=== PATIENT | female | born 1970 | race Caucasian/White ===

== ENCOUNTER 2017-02-16 07:20 | Emergency (ER) | payer OTHER ==
--- NOTE | 2017-02-16 07:39 | ER Document Report ---
HPI - HPI Patient complains to provider of: back pain Onset: Other - 4 weeks Onset/Duration: Gradual, Persistent Quality of pain: Throbbing Pain Level: 5 Context: 46 yo female with episodic low back pain, worse the past 4 weeks. Steroids prescribed by PCP did not help. No saddle anesthesia or radiculopathy. No IV drugs, No fever. Associated Symptoms: None Exacerbated by: Movement Relieved by: Denies Similar symptoms previously: Yes Recently seen / treated by doctor: No - ROS ROS below otherwise negative: Yes Systems Reviewed and Negative: Yes All other systems reviewed and negative - REPRODUCTIVE Reproductive: DENIES: : - DERM Skin Color: Normal Past Medical History - General Information source: Patient - Social History Smoking Status: Unknown if Ever Smoked Frequency of alcohol use: None Drug Abuse: None Lives with: Family Family History: Reviewed & Not Pertinent Patient has suicidal ideation: No Patient has homicidal ideation: No Pulmonary Medical History: Reports: Hx Asthma, Hx Pneumonia Renal/ Medical History: Denies: Hx Peritoneal Dialysis Surgical Hx: Negative - Immunizations Hx Diphtheria, Pertussis, Tetanus Vaccination: Yes Vertical Provider Document - CONSTITUTIONAL Agree With Documented VS: Yes Exam Limitations: No Limitations - INFECTION CONTROL TRAVEL OUTSIDE OF THE [place] IN LAST 30 DAYS: No - HEENT HEENT: Normocephalic - NECK Neck: Supple - RESPIRATORY Respiratory: Breath Sounds Normal, No Respiratory Distress O2 Sat by Pulse Oximetry: 96 - CARDIOVASCULAR Cardiovascular: Regular Rate, Regular Rhythm - GI/ABDOMEN Gastrointestinal: Abdomen Soft, Abdomen Non-Tender - BACK Back: Normal Inspection Notes: tender lumbar muscles - MUSCULOSKELETAL/EXTREMETIES Musculoskeletal/Extremeties: MAEW, FROM - NEURO Level of Consciousness: Awake, Slow to Respond Deep Tendon Reflexes: 2+ - minda ankle and patellar - DERM Integumentary: No Rash Course - Re-evaluation Re-evalutation: 02/16/17 08:18 No opiate prescriptions in the [place] controlled substance website - Vital Signs Vital signs: Temp Pulse Resp BP Pulse Ox 98.6 F 84 14 132/85 H 96 02/16/17 07:21 02/16/17 07:21 02/16/17 07:21 02/16/17 07:21 02/16/17 07:21 Discharge - Discharge Clinical Impression: Acute exacerbation of chronic low back pain Condition: Good Disposition: HOME, SELF-CARE Instructions: Low Back Pain ([facility]), Pain Medication Injection ([facility]), Warm Packs ([facility]) Additional Instructions: see your doctor for follow up continue the muscle relaxer take your hydrocodone that you have to er if worse Please complete the patient satisfaction survey if you get one, and return it.. If you do not receive a survey, then you can go to the [facility] website, [email or web address] and place your comments about your very good care. Thank you very much. It was a pleasure being your medical provider today. Prescriptions: Ondansetron [Zofran Odt] 8 mg PO Q6HP PRN #30 tab.rapdis PRN Reason: Forms: Return to Work
[2017-02-16] MEDS ORDERED: ONDANSETRON 4 MG TAB.RAPDIS PO ONE ×2 (08:14→09:10)
[2017-02-16] MEDS ORDERED: HYDROMORPHONE HCL INJ/PF 2 MG/ML AMPULE IM ONE (08:14)
[2017-02-16 09:47] VITALS: BP 125/94
== END 2017-02-16 09:47 | disposition home or self-care (01) ==
LOC: ER 07:20
DX: G89.29 Other chronic pain (principal); M54.5 Low back pain; J45.909 Unspecified asthma, uncomplicated
CPT/HCPCS: 99283; 96372; S0119; J1170